=== PATIENT | female | born 1980 | race African-American/Black ===

== ENCOUNTER 2022-10-30 06:25 | Inpatient (IN) | payer OTHER, MEDICAID ==
[2022-10-25 12:01] LABS: Eosinophils # (auto) 0.1 10 ^3/uL (0-0.8); Hemoglobin 10.5 g/dL (12.2-16.2); Monocytes # (auto) 0.3 10 ^3/uL (0-1.3)
[2022-10-25 12:05] LABS: Basophils # (auto) 0 10 ^3/uL (0-0.2); Basophils % (auto) 0.7 % (0.0-2.0); Eosinophils % (auto) 1.6 % (0.0-7.0); Hematocrit 33.7 % (36.0-46.0); Lymphocytes # (auto) 0.7 10 ^3/uL (0.4-5.4); Lymphocytes % (auto) 11.3 % (10.0-50.0); Mean Corpuscular Hgb Conc. 31.3 g/dL (32.0-36.0); Mean Corpuscular Volume 70.4 fL (80.0-100.0); Monocytes % (auto) 4.3 % (0.0-12.0); Neutrophils % (auto) 82.1 % (37.0-80.0); Red Blood Cells 4.79 10^6/uL (4.0-5.20); White Blood Cell 6.1 10^3/uL (4.4-10.8)
[2022-10-25 12:13] LABS: INR 1.03 (0.9-1.15); Partial Thromboplastin Time 29.3 SEC (24.5-34.5); Prothrombin Time 10.8 sec (9.3-11.8)
[2022-10-25 12:27] LABS: Red Cell Distribution Width 21.2 % (11.8-14.3)
[2022-10-25 12:30] LABS: Urine Bacteria NONE SEEN /hpf (None Seen); Urine Blood Negative /uL (Negative); Urine Clarity CLOUDY (Clear); Urine Color Straw (Yellow); Urine Mucus FEW (None Seen); Urine Protein, UAD TRACE (Negative); Urine Specific Gravity 1.019 (1.001-1.035); Urine Urobilinogen Normal (Negative); Urine WBC 11 /hpf (0 - 5); Urine WBC Clumps PRESENT /hpf (None Seen)
[2022-10-25 13:16] LABS: Alanine Aminotransferase 17 U/L (7-40); Albumin 4.4 g/dL (3.2-4.8); Alkaline Phosphatase 64 U/L (46-116); Anion Gap 8.2 (5-15); Aspartate Aminotransferase 16 U/L (13-40); Calcium 9.7 mg/dL (8.5-10.1); Carbon Dioxide 22.8 mmol/L (20-30); Chloride 108 mmol/L (98-107); Glucose 84 mg/dL (74-106); Potassium 4.5 mmol/L (3.5-5.1); Sodium 139 mmol/L (136-145)
[2022-10-25 13:17] LABS: BUN/Creatinine Ratio 10.5 (10.0-20.0); Blood Urea Nitrogen 10 mg/dL (9-23); Total Protein 7.2 g/dL (5.7-8.2)
[2022-10-25 13:19] LABS: Bilirubin, Total 0.7 mg/dL (0.2-1.0)
[~2022-10-30] VITALS: Ht 160 cm; Wt 57.1 kg
[2022-10-30] VITALS (7 sets, daily range): BP systolic 110–119; BP diastolic 72–85; PULSE 87–112; RESP 18–20; TEMP 97.9–98.7; O2SAT 93–100
[~2022-10-30 06:25] MED LIST: ALBUAER3 IN; HYDR-4924 PO; LAMO150T26 PO; TOPI100T29 PO
[2022-10-30] MEDS ORDERED: ceFAZolin 1GM/50ML 100 ML IV ONE (06:33)
[2022-10-30] MEDS ORDERED: LIDOCAINE 2% JELLY 11ml (GLYDO) ONE (07:00)
[2022-10-30] MEDS ORDERED: BUPIVACAINE 0.25% INJ 50ML VIAL ONE ×2 (07:12→07:17)
[2022-10-30] MEDS ORDERED: DexAMETHasone SOD PHOS 4 MG/1ML SDV INJ ONE (07:12)
[2022-10-30] MEDS ORDERED: EPINEPHrine HCL 1 MG/1 ML AMP ONE (07:12)
[2022-10-30] MEDS ORDERED: CELECOXIB 100 MG CAP PO ONE (07:15)
[2022-10-30] MEDS ORDERED: ACETAMINOPHEN IV 1000 MG/100ML (10MG/ML) IV ONE (07:15)
[2022-10-30] MEDS ORDERED: GABAPENTIN 400 MG CAP PO ONE (07:15)
[2022-10-30] MEDS ORDERED: METHYLENE BLUE 0.5% 5MG/ML 10ml AMP IV ONE (07:16)
[2022-10-30] MEDS ORDERED: LIDOCAINE 1%-Mpf/Epinephrine 1:200,000 30ml VIAL ONE (07:16)
[2022-10-30] MEDS ORDERED: PROPOFOL 10 MG/ML 20 ML IV ONE (07:18)
[2022-10-30] MEDS ORDERED: ONDANSETRON HCL 4 MG/2 ML VIAL ONE (07:18)
[2022-10-30] MEDS ORDERED: ROCURONIUM 10MG/ML 10ML VIAL IV ONE (07:18)
[2022-10-30] MEDS ORDERED: DexAMETHasone SOD PHOS 10MG/1ML VIAL INJ ONE (07:18)
[2022-10-30] MEDS ORDERED: LIDOCAINE 2% (LOCAL ANESTH.) PF 5ml SDV ONE (07:18)
[2022-10-30] MEDS ORDERED: KETOROLAC TROMETH 30 MG/ML 1ML VIAL ONE (07:18)
[2022-10-30] MEDS ORDERED: GLYCOPYRROLATE 0.2 MG/ML 1ML VIAL ONE (07:18)
[2022-10-30] MEDS ORDERED: CHLORHEXIDINE 4% TOPICAL soln 237ML TOP ONE (07:19)
[2022-10-30] MEDS ORDERED: SUGAMMADEX 200mg/2ml Vial (100MG/ML) IV ONE (07:47)
[2022-10-30] MEDS ORDERED: fentaNYL CITRATE 100 MCG/2 ML VL ONE (07:48)
[2022-10-30] MEDS ORDERED: ACETAMINOPHEN 500 MG TAB PO PRN (09:00)
[2022-10-30] MEDS ORDERED: ceFAZolin 1GM/50ML 50 ML IV ONE (09:00)
[2022-10-30] MEDS ORDERED: NITROGLYCERIN 0.4 MG SL TAB SL PRN (09:00)
[2022-10-30] MEDS: SODIUM CHLORIDE 0.9% 1,000 ML IV SCH ×2 (09:00→17:00)
[2022-10-30] MEDS ORDERED: MORPHINE SULFATE INJ 2 MG/ml SYRG IV PRN (09:00)
[2022-10-30] MEDS ORDERED: hydrOXYzine 25 MG TAB or CAP PO ONE (11:30)
[2022-10-30] MEDS ORDERED: FLUMAZENIL 0.1 MG/ML INJ 10ML MDV IV PRN (11:45)
[2022-10-30] MEDS ORDERED: NALOXONE HCL 0.4 MG/ML VIAL IV PRN (11:45)
[2022-10-30] MEDS ORDERED: ePHEDrine SULFATE 50 MG/ML AMP IV PRN (11:45)
[2022-10-30] MEDS ORDERED: hydrALAZINE HCL 20 MG/ML VL IV PRN (11:45)
[2022-10-30] MEDS ORDERED: ONDANSETRON HCL 4 MG/2 ML VIAL IV PRN (11:45)
[2022-10-30] MEDS ORDERED: LABETALOL HCL 5 MG/ML 4ML SYRINGE IV PRN (11:45)
[2022-10-30] MEDS ORDERED: fentaNYL CITRATE 100 MCG/2 ML VL IV PRN (11:45)
[2022-10-30] MEDS: HYDROmorphone HCL 2 MG/ML VL/or syr IV PRN ×3 (11:54→18:34)
[2022-10-30] MEDS: oxyCODONE HCL 5MG TAB PO PRN (12:14)
[2022-10-30] MEDS ORDERED: ALBUTEROL SULF HFA 90MCG INH 200DOSE IN SCH (14:00)
[2022-10-30] MEDS ORDERED: ALBUTEROL SULF 2.5 MG/0.5ML(0.5%) NEB SOLN NEB ONE (14:15)
[2022-10-30] MEDS ORDERED: KETAMINE 50mg/ML 10ml Vial (500mg/10ml) IV ONE (16:17)
[2022-10-30] MEDS ORDERED: HYDR-3682 PO (17:03)
[2022-10-30] MEDS ORDERED: TOPI100T29 PO (17:03)
[2022-10-30] MEDS ORDERED: LAMO150T26 PO (17:03)
[2022-10-30 19:08] LABS: Basophils # (auto) 0 10 ^3/uL (0-0.2); Basophils % (auto) 0.1 % (0.0-2.0); Eosinophils # (auto) 0 10 ^3/uL (0-0.8); Hematocrit 31.7 % (36.0-46.0); Hemoglobin 9.9 g/dL (12.2-16.2); Lymphocytes # (auto) 0.1 10 ^3/uL (0.4-5.4); Lymphocytes % (auto) 1.4 % (10.0-50.0); Mean Corpuscular Hemoglobin 22.2 pg (28.0-32.0); Mean Corpuscular Hgb Conc. 31.3 g/dL (32.0-36.0); Mean Corpuscular Volume 70.9 fL (80.0-100.0); Monocytes # (auto) 0.2 10 ^3/uL (0-1.3); Monocytes % (auto) 2.6 % (0.0-12.0); Neutrophils # (auto) 8.7 10 ^3/uL (1.6-8.6); Neutrophils % (auto) 95.9 % (37.0-80.0); Red Blood Cells 4.48 10^6/uL (4.0-5.20); White Blood Cell 9.1 10^3/uL (4.4-10.8)
[2022-10-30 19:11] LABS: Red Cell Distribution Width 20.9 % (11.8-14.3)
[2022-10-30] MEDS: TOPIRAMATE 100 MG TAB PO SCH (21:05)
[2022-10-30] MEDS: ALBUTEROL SULF 2.5 MG/0.5ML(0.5%) NEB SOLN NEB PRN (21:40)
[2022-10-30] MEDS: IPRATROPIUM BROM 0.5 MG/2.5ML INH SOL NEB PRN (21:40)
[2022-10-31] VITALS (9 sets, daily range): BP systolic 111–135; BP diastolic 68–82; PULSE 84–97; RESP 17–22; TEMP 97.8–98.8; O2SAT 93–100
[2022-10-31] MEDS: SODIUM CHLORIDE 0.9% 1,000 ML IV SCH ×3 (01:00→16:02)
[2022-10-31] MEDS: HYDROmorphone HCL 2 MG/ML VL/or syr IV PRN ×5 (01:28→20:24)
[2022-10-31] MEDS: oxyCODONE HCL 5MG TAB PO PRN (08:36)
[2022-10-31] MEDS: TOPIRAMATE 100 MG TAB PO SCH (08:37)
[2022-10-31] MEDS: ALBUTEROL SULF 2.5 MG/0.5ML(0.5%) NEB SOLN NEB PRN (08:54)
[2022-10-31] MEDS: IPRATROPIUM BROM 0.5 MG/2.5ML INH SOL NEB PRN (08:54)
[2022-10-31] MEDS ORDERED: lamoTRIgine 100 MG TAB PO SCH (10:00)
[2022-10-31] MEDS: ONDANSETRON HCL 4 MG/2 ML VIAL IV PRN ×3 (10:31→20:24)
[2022-10-31] MEDS ORDERED: diphenhdrAMINE HCL 25 MG CAP PO ONE (12:00)
== END 2022-10-31 21:40 | disposition home or self-care (01) | DRG 743 ==
LOC: SUR 06:25 → OVERFLOW 09:06 → WEST WING 16:46
PROVIDERS: ADMIT Obstetrics & Gynecology; ATTEND Obstetrics & Gynecology
PROC: 0UB60ZZ Excision of Left Fallopian Tube, Open Approach (ICD-10-PCS; 2022-10-30)
PROC: 8E0W0CZ Robotic Assisted Procedure of Trunk Region, Open Approach (ICD-10-PCS; 2022-10-30)
PROC: 0UT90ZL Resection of Uterus, Supracervical, Open Approach (ICD-10-PCS; principal; 2022-10-30 08:18)
DX: N81.4 Uterovaginal prolapse, unspecified (principal); D25.9 Leiomyoma of uterus, unspecified
CPT/HCPCS: 36415; 71045; 80053; 81001; 84702; 85025; 85610; 85730; 86850; 86900; 86901; 94640; G0378; J0131; J0171; J0690; J1100; J1885; J2001; J2405; J2704; J3490